=== PATIENT | female | born 1980 | race African-American/Black ===

== ENCOUNTER 2018-08-27 17:03 | Emergency (ER) | payer MEDICARE, OTHER ==
--- NOTE | 2018-08-27 17:38 | ED Physician Documentation ---
Psychological Disorders - HISTORIAN Historian: patient, other (caregivers) - HPI Stated Complaint: "I wanna hurt myself" Chief Complaint: Psychological Disorder - ROS CONST: none - PAST HX Psychiatric problems: bipolar disorder, other (schizoaffective, GERD, MR) - Social HX Smoking History: non-smoker - REVIEWED ASSESSMENTS Vitals Reviewed: Yes <VANESSA DUPREE - Last Filed: 08/27/18 19:04> - Family HX Family HX: denies: mental illness, other <Moises Quintanilla - Last Filed: 08/27/18 23:36> - HPI Additional Information: Wants to kill herself. Says one of the staff told pt the staff member didn't like her. Has felt this way since yesterday. Plans to pull the covers over her head and just end it all. Has tried this once in the past. Has been admitted to [facility] x2 for SI. No other modifying factors or associated events. (VANESSA DUPREE) Wants to kill herself. Says one of the staff told pt the staff member didn't like her. Has felt this way since yesterday. Plans to pull the covers over her head and just end it all. Has tried this once in the past. Has been admitted to [facility] x2 for SI. No other modifying factors or associated events. (Moises Quintanilla) - PAST HX Allergies/Adverse Reactions: Allergies Allergy/AdvReac Type Severity Reaction Status Date / Time No Known Allergies Allergy Unverified 08/27/18 17:52 Home Medications: Ambulatory Orders Medication Instructions Recorded Acetaminophen [Tylenol] 650 mg PO Q4 PRN 08/27/18 Citalopram Hydrobromide [Celexa] 40 mg PO QD 08/27/18 Divalproex Sodium [Depakote ER] 1,000 mg PO BID 08/27/18 Docusate Sodium [Colace] 100 mg PO BID 08/27/18 Famotidine [Pepcid] 20 mg PO 717 08/27/18 Guaifenesin/Dextromethorphan 118 ml PO Q4H PRN 08/27/18 [Robafen Dm Cgh-Chest Adriano Syrp] Haloperidol [Haldol] 5 mg PO Q6H PRN 08/27/18 Haloperidol [Haldol] 10 mg PO HS 08/27/18 Hydrochlorothiazide [Hydrodiuril] 12.5 mg PO QDAY 08/27/18 Loratadine [Claritin] 10 mg PO QDAY 08/27/18 Magnesium Hydroxide [Milk of 2,400 mg PO DIRECTED PRN 08/27/18 Magnesia] Medroxyprogesterone Acetate 150 mg IM DIRECTED 08/27/18 [Depo-Provera] Paliperidone Palmitate [Invega 234 mg IM DIRECTED 08/27/18 Sustenna] Vit Calc,Iron,Folic 1 each PO QDAY 08/27/18 [ Vitamins] amLODIPine BESYLATE [Norvasc] 5 mg PO 0900 08/27/18 clonazePAM [Klonopin] 1 mg PO BID 08/27/18 traZODone HCL [Desyrel] 50 mg PO HS 08/27/18 - VITAL SIGNS Vital Signs: Vital Signs Temp Pulse Resp BP Pulse Ox 97.3 F L 77 16 147/86 98 08/27/18 17:10 08/27/18 22:11 08/27/18 22:11 08/27/18 22:11 08/27/18 22:11 Progress <VANESSA DUPREE - Last Filed: 08/27/18 19:04> <Moises Quintanilla - Last Filed: 08/27/18 23:36> - Progress Progress: 1909, care to Dr. Quintanilla Transfer to [facility], Dr. Hassan. (VANESSA DUPREE) 1909, care to Dr. Quintanilla Transfer to [facility], Dr. Hassan. (Moises Quintanilla) - Lab Results Lab Results: Lab Results 08/27/18 08/27/18 08/27/18 17:40 17:40 17:40 WBC Comment 11.33 thou/uL thou/uL (4.00-12.00) RBC 4.00 mil/uL mil/uL (3.90-5.20) Hemoglobin (Send Out) 12.2 g/dL g/dL (11.5-16.0) Hct (Send Out) 38.2 % % (34.5-46.5) MCV (Send Out) 95.6 fL fL (80.0-100.0) MCH 30.5 pg pg (28.0-34.0) MCHC (Send Out) 31.9 g/dL g/dL (30.0-36.0) RDW Coeff of Dajaun 12.5 % % (11.3-14.7) Plt Count 268 thou/uL thou/uL (130-400) Absolute Lymphs (auto) 4.23 thou/uL H thou/uL (0.60-4.00) Absolute Monos (auto) 0.85 thou/uL thou/uL (0.00-0.90) Absolute Basos (auto) 0.08 thou/uL thou/uL (0.00-0.50) Neutrophils % 53.0 % % (39.0-79.0) Absolute Neutrophils 6.00 thou/uL thou/uL (1.50-7.70) Lymphocytes 37.3 % % (16.0-50.0) Monocytes 7.5 % % (0.0-11.0) Absolute Eosinophils 0.17 thou/uL thou/uL (0.00-0.60) Basophilia % 0.7 % % (0.0-1.5) Eosinophil Count 1.5 % % (0.0-6.8) Sodium Potassium Chloride Carbon Dioxide BUN Creatinine Estimated Creat Clear Est GFR ( Amer) Est GFR (Non-Af Amer) Glucose Calcium Total Bilirubin AST ALT Alkaline Phosphatase Total Protein Albumin TSH 3.020 uIU/mL uIU/mL (0.270-4.200) Acetaminophen Ethyl Alcohol 4.7 mg/dL mg/dL (0.0-10.0) 08/27/18 17:40 WBC Comment RBC Hemoglobin (Send Out) Hct (Send Out) MCV (Send Out) MCH MCHC (Send Out) RDW Coeff of Dajuan Plt Count Absolute Lymphs (auto) Absolute Monos (auto) Absolute Basos (auto) Neutrophils % Absolute Neutrophils Lymphocytes Monocytes Absolute Eosinophils Basophilia % Eosinophil Count Sodium 135 mmol/L L mmol/L (136-145) Potassium 4.1 mmol/L mmol/L (3.5-5.1) Chloride 100 mmol/L mmol/L (98-107) Carbon Dioxide 28 mmol/L mmol/L (22-30) BUN 16 mg/dL mg/dL (7-17) Creatinine 1.00 mg/dL mg/dL (0.52-1.04) Estimated Creat Clear 157 Est GFR ( Amer) > 60 (60 - ) Est GFR (Non-Af Amer) > 60 (60 - ) Glucose 86 mg/dL mg/dL (74-106) Calcium 8.8 mg/dL mg/dL (8.4-10.2) Total Bilirubin 0.3 mg/dL mg/dL (0.2-1.3) AST 21 U/L U/L (15-46) ALT 23 U/L U/L (13-69) Alkaline Phosphatase 86 U/L U/L (38-126) Total Protein 7.6 g/dL g/dL (6.3-8.2) Albumin 3.9 g/dL g/dL (3.5-5.0) TSH Acetaminophen < 4.0 ug/mL L ug/mL (10-30) Ethyl Alcohol - Orders Orders: ED Orders Category Date Time Status ACETAMINOPHEN LEVEL Routine Lab 08/27/18 17:40 Completed ALCOHOL MEDICAL USE ONLY Stat Lab 08/27/18 17:40 Completed CBC REF Routine Lab 08/27/18 17:40 Completed CMP Routine Lab 08/27/18 17:40 Completed DRUG SCREEN 8,URINE Stat Lab 08/27/18 17:40 Ordered SALICYLATE LEVEL Stat Lab 08/27/18 17:40 Received THYROID STIMULATING HORMONE Stat Lab 08/27/18 17:40 Completed URINE HCG Stat Lab 08/27/18 17:40 Received Acetaminophen [Tylenol Extra Strength] Med 08/27/18 18:59 Discontinued 1,000 mg PO NOW ONE Cyclobenzaprine HCl [Flexeril] Med 08/27/18 18:59 Discontinued 10 mg PO NOW ONE Psych Physical Exam - Physical Exam General Appearance: alert, mild distress (upset), other (obese) ENT: nml ENT inspection Eyes: EOM's intact (conjugate movements) Mental Status: suicidal ideation Suicide Attempts: admit, still contemplating Orientation: nml x3 Cranial Nerves: CN's intact as tested Sensory, Motor: nml motor response, nml sensory response, nml gait Neck/Back: normal inspection, supple Respiratory: no resp distress, breath sounds normal CVS: reg rate & rhythm, heart sounds normal, no murmur Abdomen: non-tender, nml bowel sounds Skin: warm/dry, normal color Extremities: non-tender, normal range of motion (gait and stance), no evidence of injury, no edema <VANESSA DUPREE - Last Filed: 08/27/18 19:04> Discharge <VANESSA DUPREE - Last Filed: 08/27/18 19:04> Decision to Admit: NO Decision Time: 21:17 <Moises Quintanilla - Last Filed: 08/27/18 23:36> Clincal Impression: Suicidal ideation with plan, Schizoaffective d/o, bipolar d/o, MR Referrals: Pancho Patrick [Primary Care Provider] - Condition: Stable Disposition: [facility]
[2018-08-27 18:28] LABS: eGFR (Non-African) > 60
[2018-08-27] MEDS ORDERED: CYCLOBENZAPRINE HCL 5 MG TABLET PO ONE (18:59)
[2018-08-27] MEDS ORDERED: ACETAMINOPHEN 500 MG TABLET PO ONE (18:59)
[2018-08-27 19:42] LABS: BASO % 0.7 % (0.0-1.5); EOS % 1.5 % (0.0-6.8); LYMPH ABS # 4.23 thou/uL (0.60-4.00); MCH. 30.5 pg (28.0-34.0); MCV 95.6 fL (80.0-100.0); MONOCYTE % 7.5 % (0.0-11.0); MONOCYTE ABS # 0.85 thou/uL (0.00-0.90); PLATELET COUNT 268 thou/uL (130-400)
[2018-08-27 22:28] VITALS: BP 147/86
[2018-08-28 07:22] LABS: CANNABINOIDS NEGATIVE ng/mL (< 50); METHYLENEDIOXYMETHAMPHETAMINE NEGATIVE ng/mL (<500)
== END 2018-08-27 21:55 | disposition short-term general hospital (02) ==
LOC: ED 17:03
DX: R45.851 Suicidal ideations (principal); F25.9 Schizoaffective disorder, unspecified; F31.9 Bipolar disorder, unspecified
CPT/HCPCS: 80053; 81025; 84443; 85025; G0480; 80320; 80377; 99284; G0481